=== PATIENT | female | born 1970 | race Hispanic/Latino ===

== ENCOUNTER 2016-08-08 18:34 | Emergency (ER) | payer OTHER ==
[~2016-08-08] VITALS: Ht 154.9 cm; Wt 63.5 kg
[~2016-08-08 18:34] MED LIST: MOTRIN 600 MG600 MG PO
[2016-08-08 18:40] VITALS: BP 136/76
--- NOTE | 2016-08-08 18:41 | ED EAR COMPLAINT ---
History of Present Illness General Chief Complaint: Ear Complaints Stated Complaint: LEFT EAR PAIN/CLOGGED Source: patient Exam Limitations: no limitations Vital Signs & Intake/Output Vital Signs & Intake/Output Vital Signs Date Time Temp Pulse Resp B/P B/P Pulse O2 O2 Flow FiO2 Mean Ox Delivery Rate 08/08 1840 98.7 78 18 136/76 98 Room Air Allergies Coded Allergies: NO KNOWN ALLERGIES (08/18/11) Reconcile Medications Ciprofloxacin HCl/Dexameth (Ciprodex Otic Suspension) 0.3 %-0.1 % DROPS.SUSP 4 GTT OT BID otitis externa use for 7 days Triage Note: 45 YO FEMALE TO TRIAGE, STATES SHE HAS HER DR LAST WEEK WHO GAVE HER EAR DROPS FOR WAX BUILDUP IN L EAR. STATES TODAY SHE IS HAVING PAIN IN THE R EAR AND EAR IS CLOGGED. Triage Nurses Notes Reviewed? yes Onset: Gradual Duration: day(s): (1) Timing: recent history Injury Environment: home Severity: severe Modifying Factors: Worsens With: other (AFTER EAR DROPS). HPI: Patient is a 45-year-old female with no medical history presenting to the emergency department with chief complaint of left ear pain, reports that it feels clogged. Has been going on for the past 4-5 days. She saw her primary care physician and they prescribed Debrox drops to help soften the wax. No fevers or chills no nausea or vomiting. Denies feeling off balance. No current dizziness. Has been using the drops with little relief. She actually reports that her pain in the left ear became worse after the drops. (JOHN BYNUM) Past History Travel History Traveled to [place] past 21 day No Medical History Any Pertinent Medical History? 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 No (JOHN BYNUM) Review of Systems Review of Systems Constitutional: Reports: no symptoms. Comments Review of systems: See HPI, All other systems negative. Constitutional, no chills fever or weight loss HEENT: No visual changes no sore throat no congestion Cardiovascular: No chest pain ,palpitation Skin, no jaundice no rashes Respiratory: No dyspnea cough sputum or hemoptysis GI: No nausea no vomiting Muscle skeletal: no back pain, no neck pain, Neurologic: No numbness no confusion Psych: No stress anxiety Immunology: No splenectomy or history of AIDS (JOHN BYNUM) Physical Exam Physical Exam General Appearance: well developed/nourished, no apparent distress, alert, awake , comfortable Ears: Left: other (cerumen impaction). Right: canal normal, Tympanic normal. (JOHN BYNUM) Progress Differential Diagnoses I considered the following diagnoses in my evaluation of the patient: Cervical impaction, otitis externa, otitis media, perforated tympanic membrane Plan of Care: Left ear was successfully irrigated. Large cerumen impaction removed. Patient ambulatory after procedure. The external canal on the left side was slightly erythematous after procedure. Tympanic membrane intact. Initial ED EKG: none (JOHN BYNUM) Departure Departure Time of Disposition: 1909 Disposition: HOME OR SELF CARE Condition: Stable Clinical Impression Primary Impression: Cerumen impaction Qualifiers: Laterality: left Qualified Code: H61.22 - Impacted cerumen, left ear Secondary Impressions: Otitis externa Qualifiers: Otitis externa type: unspecified type Chronicity: acute Laterality: left Qualified Code: H60.502 - Unspecified acute noninfective otitis externa, left ear Referrals: TYSON WORTHINGTON APRN (PCP/Family) Additional Instructions: follow up with pcp call to make appt. use ciprodex as directed. Departure Forms: Customer Survey General Discharge Information Prescriptions: Current Visit Scripts Ciprofloxacin HCl/Dexameth (Ciprodex Otic Suspension) 4 GTT OT BID #1 BOT use for 7 days (JOHN BYNUM) PA/EC TEACHER Co-Sign Statement Statement: ED Attending supervision documentation- [] I saw and evaluated the patient. I have also reviewed all the pertinent lab results and diagnostic results. I agree with the findings and the plan of care as documented in the PA's/EC TEACHER's documentation. [x] I have reviewed the ED Record and agree with the PA's/EC TEACHER's documentation. [] Additions or exceptions (if any) to the PAs/EC TEACHER's note and plan are summarized below: [] (BRUCE FRANCO,KEITH Linares)
[2016-08-08] MEDS ORDERED: CIPRODEX OTIC7.5 ML OT (19:13)
== END 2016-08-08 19:27 ==
LOC: ERH 18:34
DX: H61.22 Impacted cerumen, left ear (principal); H60.92 Unspecified otitis externa, left ear